=== PATIENT | female | born 1985 | race Caucasian/White ===

== ENCOUNTER 2021-01-23 17:10 | Emergency (ER) | payer MEDICAID, SELFPAY ==
--- NOTE | ~2021-01-23 | XR_ITS ---
EXAMINATION: XR hip RT min 2V EXAM DATE: 01/23/2021 19:16 INDICATION: Hip pain after fall X 3wks ago limited movement. TECHNIQUE: Right hip frontal, 'frog leg' projections for interpretation. There is no prior study for comparison. FINDINGS: Smooth right hip femoral head contour, no radiographic evidence of avascular necrosis. Hip joint space is maintained. There are no acute fractures or dislocations identified. There is no subc utaneous gas. The soft tissue is unremarkable. There are no radiopaque foreign bodies. IMPRESSION: 1. Unremarkable XR hip RT min 2V exam. Reviewed, dictated and finalized at location A.
--- NOTE | ~2021-01-23 | XR_ITS ---
EXAMINATION: XR knee RT 3V EXAM DATE: 01/23/2021 18:13 INDICATION: Fall Twisted 3 weeks ago. TECHNIQUE: Three projections of the right knee. There is no prior study for comparison. FINDINGS: No evidence osteochondral defect or joint body in the right knee joint. There are no acut e fractures or dislocations identified. There is no subcutaneous gas. The soft tissue is unremarkab le. There are no radiopaque foreign bodies. IMPRESSION: 1. Unremarkable XR knee RT 3V exam. Reviewed, dictated and finalized at location A.
--- NOTE | 2021-01-23 17:52 | ED.LOWEXIN ---
HPI - Extremity Injury (Lower) General Chief Complaint: Fall Stated Complaint: Right Knee injury Source: patient and RN notes reviewed Mode of arrival: wheelchair Limitations: no limitations History of Present Illness HPI Narrative: patient states she was walking in the [facility] and slipped on the tile floor with an inversion type injury of her right lower extremity. This happened on December 31 now little over 3 weeks ago. She says she is to the point where she can hardly stand and she cannot completely extend her right leg nor can she bend her right knee. Says that she has felt like it locks in place at times. complaint: knee injury Onset (ago): week(s) (3) Injury: Right: knee Type of Injury: inversion Place: other ( [facility]) Severity: severe Relieving factors: NSAID Exacerbating factors: weight bearing, movement and palpation Context: fall and walking Associated symptoms: swelling and unable to bear weight Other symptoms: none Treatments prior to arrival: NSAIDS and splint Related Data Allergies Allergy/AdvReac Type Severity Reaction Status Date / Time No Known Allergies Allergy Verified 01/23/21 19:02 Review of Systems Review of Systems: All systems reviewed & are unremarkable except as noted in HPI and below PMFSH Past Medical History Medical History (Updated 01/23/21 @ 19:05 by Errol Leblanc MD) No active medical problems Surgical History Surgical History (Updated 01/23/21 @ 18:55 by Errol Leblanc MD) History of appendectomy Exam Const: General: healthy appearing and no acute distress Nutritional Appearance: well nourished Orientation/consciousness: patient oriented x3 Other: female nurse in room during examination. HENMT: Head: normal to inspection Ears: external ears normal Mouth: Yes moist mucous membranes Eyes: Conjunctivae: conjunctivae normal Pupils: Equal, round and reactive pupils present EOM: EOMs intact bilaterally Neck: Neck: normal visual inspection Resp: Effort & Inspection: normal respiratory effort Auscultation: clear to auscultation bilaterally Cardio: Rate: regular rate Rhythm: regular rhythm GI: GI Palp: Yes Soft to palpation and No Tenderness to palpation present (GI) Auscultation: normal bowel sounds Back/Spine/Pelvis: Cervical Spine: cervical ROM normal Thoracic/Lumbar Spine: thoraco-lumbar ROM normal Skin: General skin exam: normal color Rashes: no rashes Neuro: General: patient oriented x3, moves all extremities and no focal motor deficits Speech: normal speech Extrem: General: normal to inspection and no clubbing, cyanosis or edema Right lower extremity: hip/thigh Details: tenderness Location: of the hip Location: laterally and knee ( patient refuses to bend the knee either flexion or extension) Details: tenderness Location: of the medial joint line (severe), abnormal ROM Details: held in an abnormal fashion Details: in flexion, pain with active ROM during Details: in extension and in flexion, pain with passive ROM during Details: in extension and in flexion and unable to extend lower leg actively, knee ligament exam normal Details: valgus stress test normal and Andrade's Test Details: positive medially Psych: Appearance: grossly normal and well kempt Mental Status: mental status grossly normal Affect: normal affect Attitude: cooperative Thought content: Yes Normal thought content present Procedures Orthopedic Splinting/Casting Injury #1: Splinting/Casting Date: 01/23/21 Side: right Lower Extremity Injury Location: knee Lower Extremity Immobilizer: knee immobilizer Pre-Procedure Neuro Vascular Exam: normal Post-Procedure Neuro Vascular Exam: normal Discharge Plan Discharge Clinical Impression: Internal derangement of knee Qualifiers: Laterality: right Qualified Code(s): M23.91 - Unspecified internal derangement of right knee Patient Disposition: Home, Self-Care Condition: Sta
[2021-01-23 18:28] VITALS: PULSE 78; RESP 16; TEMP 37; O2SAT 99
[2021-01-23] MEDS: KETOROLAC 30 MG/ML VIAL (*BKC) IM (19:02)
[2021-01-23 19:51] VITALS: PULSE 72; RESP 22; TEMP 36.1; O2SAT 96
== END 2021-01-23 19:58 | disposition home or self-care (01) ==
PROVIDERS: Emergency Provider Emergency Medicine
DX: M23.91 Unspecified internal derangement of right knee (principal); S89.91XA Unspecified injury of right lower leg, initial encounter; W01.0XXA Fall on same level from slipping, tripping and stumbling without subsequent striking against object, initial encounter
CPT/HCPCS: 73502; 73562; 96372; 99283; 99284; J1885; L1830

== ENCOUNTER 2021-05-29 10:41 | Outpatient (RCR) | payer OTHER, SELFPAY | END 2021-05-29 10:42 | disposition home or self-care (01) | LOC: ANHPT 10:41 | PROVIDERS: Visit Provider Orthopaedic Surgery | DX: Z48.89 Encounter for other specified surgical aftercare (principal) | CPT/HCPCS: 99199 ==